=== PATIENT | male | born 1940 ===

== ENCOUNTER 2018-03-04 07:00 | Inpatient (IN) | payer OTHER ==
[~2018-03-04] VITALS: Ht 170.2 cm; Wt 72.6 kg
[2018-03-04] MEDS ORDERED: PLAVIX75 MG PO (08:45)
[2018-03-04] MEDS ORDERED: TAMS0.4C PO (08:46)
[2018-03-04] MEDS ORDERED: LIPITOR20 MG PO (08:46)
[2018-03-04] MEDS ORDERED: AVAPRO150 MG PO (08:46)
[2018-03-11] MEDS ORDERED: DOCUSATE SODIU100 MG PO (13:09)
[2018-03-11] MEDS ORDERED: GABAPENTIN800 MG PO (13:09)
[2018-03-11] MEDS ORDERED: AMOX-CLAV 875-1 EACH PO (13:10)
[2018-03-11] MEDS ORDERED: CLONAZEPAM1 MG PO (13:11)
[2018-03-11] MEDS ORDERED: PERCOCET 5-3251 EACH PO (13:11)
== END 2018-03-11 15:47 | disposition home or self-care (01) | DRG 460 ==
LOC: PED 03-10 05:15 → O/R 03-10 05:15 → SURH 03-10 07:00 → PED 03-10 16:14
PROVIDERS: Orthopaedic Surgery Orthopaedic Surgery of the Spine
PROC: 0SG30AJ Fusion of Lumbosacral Joint with Interbody Fusion Device, Posterior Approach, Anterior Column, Open Approach (ICD-10-PCS; 2018-03-10)
PROC: 0ST40ZZ Resection of Lumbosacral Disc, Open Approach (ICD-10-PCS; 2018-03-10)
PROC: 07DS3ZZ Extraction of Vertebral Bone Marrow, Percutaneous Approach (ICD-10-PCS; 2018-03-10)
PROC: 00NY0ZZ Release Lumbar Spinal Cord, Open Approach (ICD-10-PCS; principal; 2018-03-10 12:30)
DX: M96.1 Postlaminectomy syndrome, not elsewhere classified (principal); I67.89 Other cerebrovascular disease; M47.27 Other spondylosis with radiculopathy, lumbosacral region; M51.17 Intervertebral disc disorders with radiculopathy, lumbosacral region; I11.9 Hypertensive heart disease without heart failure; I25.10 Atherosclerotic heart disease of native coronary artery without angina pectoris